=== PATIENT | female | born 1965 ===

== ENCOUNTER 2025-06-09 07:01 | Day surgery (SDC) | payer OTHER ==
[~2025-06-09] VITALS: Ht 157.5 cm; Wt 76.1 kg
[2025-06-09] VITALS (18 sets, daily range): BP systolic 92–118; BP diastolic 45–83
[~2025-06-09 07:01] MED LIST: METPHE10 PO; THERA-D2000 UNIT PO
[2025-06-09] MEDS ORDERED: Ropivacaine 0.5% HCl/Pf 123.125 MG,EPINEPHrine HCL 0.25 MG,Ketorolac Tromethamine 15 MG... INFIL SCH (07:20)
[2025-06-09] MEDS ORDERED: Tranexamic Acid 100 ML IV SCH (07:20)
[2025-06-09] MEDS ORDERED: CeFAZolin Sodium 2,000 MG in NS 100 ML IV SCH ×2 (07:20→17:00)
[2025-06-09] MEDS ORDERED: Chlorhexidine Mouth Care 15 ML UDC MT SCH (07:20)
[2025-06-09] MEDS ORDERED: Magnesium Hydroxide Conc 10 ML UDC PO PRN (07:55)
[2025-06-09] MEDS ORDERED: Midazolam HCl 1MG / ML 2ML Vial ONE (07:55)
[2025-06-09] MEDS ORDERED: Ondansetron HCl 2 MG / ML 2ML Vial IV PRN (07:55)
[2025-06-09] MEDS ORDERED: Metoclopramide HCl 5MG / ML 2ML Vial IV PRN (07:55)
[2025-06-09] MEDS ORDERED: HYDROmorphone HCl/Pf 1MG SYR IV PRN (08:00)
--- NOTE | 2025-06-09 08:24 | NUR ---
Ambulatory in Day Surgery. History, Chart, Medications and Allergies reviewed before start of procedure. Pt reports she is okay to take Tylenol and Oxycodone separetely. She reports having a rash from Percocet in the past but has done fine with these drugs since then. Discussed with Dr. Gar, per Dr. Gar okay to give. Patient confirms NPO status and agrees with scheduled surgery. Pre-Op teaching done. Pt verbalizes understanding. Patient States Post-Procedure ride home has been arranged. Pt belongings placed underneath [facility] for safekeeping.
[2025-06-09] MEDS ORDERED: Cholecalciferol 1000 Unit Tablet (=25MCG) PO SCH (09:00)
[2025-06-09] MEDS ORDERED: Phenylephrine HCl 100 MCG/ML-NS 10MLSYR (1MG/10ML) ONE ×2 (09:05→09:34)
[2025-06-09] MEDS ORDERED: Ondansetron HCl 2 MG / ML 2ML Vial ONE (09:07)
[2025-06-09] MEDS ORDERED: Dexamethasone Sod Phos 10 MG/ML 1ML VIAL ONE (09:08)
[2025-06-09] MEDS ORDERED: Glycopyrrolate 0.2 MG/ML 5ML VIAL ONE (09:35)
[2025-06-09] MEDS ORDERED: FentaNYL Citrate 50 MCG/ML 2 ML Injection ONE (10:48)
[2025-06-09] MEDS ORDERED: HYDROmorphone HCl/Pf 1MG SYR ONE (11:10)
--- NOTE | 2025-06-09 11:55 | NUR ---
POST OP ARRIVAL TO SURGICAL UNIT VIA HOSPITAL BED. ALERT, ORIENTED, & PLEASANT. ABLE TO WIGGLE TOES. R KNEE w/ TEGADERM & TELFA; NO DRNG NOTED. PPP. LUNGS CLEAR. HRR. REPORTS PAIN IS TOLERABLE. DENIES N/V. SNACKS & WATER GIVEN.
[2025-06-09] MEDS ORDERED: Ketorolac Tromethamine 15mg Vial IV SCH (12:00)
[2025-06-09] MEDS ORDERED: ACET500 PO (16:20)
[2025-06-09] MEDS ORDERED: OXYC5 PO (16:20)
[2025-06-09] MEDS ORDERED: ASPI81CH PO (16:20)
--- NOTE | 2025-06-09 16:52 | NUR ---
DISCHARGE SUMMARY POD0 R TKA, A/OX4, VSS, TOLERATING PO, PAIN WELL MANAGED PER EMAR, ABLE TO GET UP AND AMBULATE TO THE BATHROOM SAFELY WITH DIRECTION FROM STAFF, WORKED WITH THERAPY, ABLE TO VOID INDEPENDENTLY. FULL SENSATION RETURNED BLE PRIOR TO WORKING WITH THERAPY. NO QUESTIONS AT TIME OF DISCHARGE, ESCORTED OUT VIA WC TO PRIVATE AUTO TO GO HOME.
== END 2025-06-09 16:37 | disposition home or self-care (01) ==
LOC: ORSCMMR 07:01 → ORD 08:30 → SURS 11:52 → ORSCMMR 16:37
PROVIDERS: Orthopaedic Surgery
PROC: 0SRC0JA Replacement of Right Knee Joint with Synthetic Substitute, Uncemented, Open Approach (ICD-10-PCS; principal; 2025-06-09 08:30)
PROC: 8E0Y0CZ Robotic Assisted Procedure of Lower Extremity, Open Approach (ICD-10-PCS; principal; 2025-06-09 08:30)
DX: M17.11 Unilateral primary osteoarthritis, right knee (principal); E66.9 Obesity, unspecified; Z68.30 Body mass index [BMI] 30.0-30.9, adult; Z79.899 Other long term (current) drug therapy
CPT/HCPCS: 27447; 0055T; 73560-RT; 97110; 97116; 97161; 97530; A9270; C1713; C1776; J0166; J0690; J0735; J1100; J1171; J1885; J2250; J2371; J2405; J2704; J2795; J3010; J7120

== ENCOUNTER 2025-06-26 15:44 | Emergency (ER) | payer OTHER ==
[~2025-06-26] VITALS: Ht 162.6 cm; Wt 78.9 kg
[~2025-06-26 15:44] MED LIST changes: +ACET500 PO; +ASPI81CH PO; +OXYC5 PO
[2025-06-26] MEDS ORDERED: NS 1,000 ML IV SCH (16:10)
[2025-06-26] MEDS ORDERED: OxyCODONE 5 mg/Acetamin 325 mg TABLET PO ONE (16:20)
[2025-06-26 16:52] LABS: BASOPHILS ABSOLUTE AUTO 0.06 K/mm3 (0.00-0.23); BASOPHILS PERCENT AUTO 1 % (0-2); EOSINOPHILS ABSOLUTE AUTO 0.16 K/mm3 (0.00-0.68); EOSINOPHILS PERCENT AUTO 3 % (0-6); Hematocrit 38.4 % (33.0-51.0); Hemoglobin 12.4 g/dL (11.5-16.0); IMMATURE GRAN ABSOLUTE AUTO 0.01 K/mm3 (0.00-0.10); IMMATURE GRAN PERCENT AUTO 0 % (0-1); LYMPHOCYTES ABSOLUTE AUTO 0.85 K/mm3 (0.84-5.20); LYMPHOCYTES PERCENT AUTO 15 % (21-46); MONOCYTES ABSOLUTE AUTO 0.26 K/mm3 (0.16-1.47); MONOCYTES PERCENT AUTO 5 % (4-13); Mean Corpuscular HGB Conc 32.3 g/dL (31.5-36.5); Mean Corpuscular Volume 89 fL (80-100); NEUTROPHILS ABSOLUTE AUTO 4.28 K/mm3 (1.96-9.15); NEUTROPHILS PERCENT AUTO 76 % (41-73); NRBC ABSOLUTE 0.00 K/mm3 (0.00-0.02); NRBC Auto 0.0 /100 WBC (0.0-0.2); Platelet Count 427 K/mm3 (150-400); RDW Coefficient Variation 15.1 % (11.7-14.2); RDW Standard Deviation 49.3 fL (35.1-46.3)
[2025-06-26 17:13] LABS: Alanine Aminotransfer (ALT/SGP 18.0 U/L (12-78); Albumin, Blood 3.0 g/dL (3.4-5.0); Albumin/Globulin Ratio 0.8 (0.8-1.8); Anion Gap 7.0 mmol/L (3-11); Aspartate Aminotrans (AST/SGOT 20.0 U/L (12-37); Bilirubin, Total 1.5 mg/dL (0.1-1.0); Blood Urea Nitrogen 15.0 mg/dL (8-24); CO2, Blood 29.0 mmol/L (21-32); Calcium, Blood 8.6 mg/dL (8.5-10.1); Chloride, Blood 106.0 mmol/L (98-108); Creatinine, Blood 0.55 mg/dL (0.40-1.00); Globulin, Blood 3.6 g/dL (2.2-4.0); Glucose, Blood 105.0 mg/dL (70-99); Potassium, Blood 4.0 mmol/L (3.5-5.5); Sodium, Blood 138.0 mmol/L (136-145); Total Protein, Blood 6.6 g/dL (6.4-8.2)
== END 2025-06-26 19:20 | disposition home or self-care (01) ==
LOC: ER 15:44
PROVIDERS: Emergency Medicine
DX: R55 Syncope and collapse (principal); D75.839 Thrombocytosis, unspecified; Z79.82 Long term (current) use of aspirin; Z79.899 Other long term (current) drug therapy
CPT/HCPCS: 71045; 80053; 83605; 83880; 84484; 85025; 93005; 93010; 96360; 99284-25; A9270; J7030

== ENCOUNTER → 2025-07-31 | Outpatient (CLI) | payer OTHER ==
[2025-07-31 20:11] LABS: Bacterial Vaginosis PCR Negative (NEGATIVE); Candida glabrata-krusei, PCR NOT DETECTED (NOT DETECT)
[2025-07-31 20:15] LABS: Candida Group, PCR DETECTED (NOT DETECT)
== END ==
LOC: LAB SHORT 17:23 → LAB 17:23
DX: B37.31 Acute candidiasis of vulva and vagina (principal)
CPT/HCPCS: 81515